=== PATIENT | female | born 1975 | race Two or more races ===

== ENCOUNTER 2024-08-19 16:22 | Emergency (ER) | payer OTHER ==
[~2024-08-19] VITALS: Ht 162.6 cm; Wt 68.0 kg
[2024-08-19] MEDS ORDERED: CARDIZEM30 MG PO (16:26)
[2024-08-19] MEDS ORDERED: ZESTRIL2.5 MG PO (16:26)
[2024-08-19] MEDS ORDERED: DEXAMETHASONE SODIUM PHOSPHATE 4 MG/ML VIAL IM STA (20:19)
[2024-08-19] MEDS ORDERED: GUAIFENESIN/DEXTROMETHORPHAN 10ML BLIST.PACK PO STA (20:20)
[2024-08-19 20:51] LABS: HEMATOCRIT 34.1 % (36.0-45.00); MEAN CELL VOLUME 80.3 fL (80.00-100.00); MEAN CORPUSCULAR HGB CONC 32.3 g/dl (32.0-36.0); PLATELET COUNT 310 K/uL (150-450); RED BLOOD COUNT 4.25 M/uL (4.00-6.00); RED CELL DISTRIBUTION WIDTH 17.1 % (11.5-14.5)
[2024-08-19 21:14] LABS: CALCIUM 9.4 mg/dL (8.5-10.1); CREATININE SERUM 0.73 mg/dL (0.55-1.02); GFR 84.05; POTASSIUM 4.17 mEq/L (3.5-5.1)
[2024-08-19] MEDS ORDERED: AMOX-CLAV 875-1 EACH PO (22:14)
[2024-08-19] MEDS ORDERED: DEXAMETHASONE4 MG PO (22:14)
[2024-08-19] MEDS ORDERED: MUCINEX DM ER1 EACH PO (22:14)
[2024-08-19] MEDS ORDERED: AYR SALINE50 ML NASAL (22:14)
== END 2024-08-19 23:39 | disposition home or self-care (01) ==
LOC: ER 16:24
PROVIDERS: General Practice
DX: J04.0 Acute laryngitis (principal); Z20.822 Contact with and (suspected) exposure to COVID-19; I10 Essential (primary) hypertension; Z88.8 Allergy status to other drugs, medicaments and biological substances

== ENCOUNTER 2025-05-18 12:14 | Emergency (ER) | payer OTHER ==
[~2025-05-18] VITALS: Ht 167.6 cm; Wt 73.5 kg
[~2025-05-18 12:14] MED LIST: AMOX-CLAV 875-1 EACH PO; AYR SALINE50 ML NASAL; CARDIZEM30 MG PO; DEXAMETHASONE4 MG PO; MUCINEX DM ER1 EACH PO; ZESTRIL2.5 MG PO
[2025-05-18] MEDS ORDERED: ZESTRIL2.5 MG (12:33)
[2025-05-18] MEDS ORDERED: METRONIDAZOLE500 MG (12:34)
[2025-05-18] MEDS ORDERED: CIPRO500 MG/5 M (12:34)
[2025-05-18 13:14] LABS: BASO % 0.5 % (0.1-1.2); EOS # 0.11 (0.04-0.54); EOS % 1.0 % (0.7-7.0); LYMPH # 1.16 (1.18-3.74); LYMPH % 10.2 % (19.3-53.1); MEAN PLATELET VOLUME 11.20 fl (9.4-12.4); MONO # 1.01 (0.24-0.82); MONO % 8.9 % (4.7-12.5); NEUT # 8.99 (1.56-6.13); NEUT % 79.1 % (34.0-71.1); RED CELL DISTRIBUTION WIDTH 18.6 % (11.6-14.4)
[2025-05-18 13:47] LABS: BUN CREA RATIO 7.0 (7.0-25.0); CREATININE SERUM 1.08 mg/dL (0.55-1.02); GFR 53.48; GLUCOSE FASTING 146.0 mg/dL (65-100); OSMOLALITY SERUM 279.0 MOSM/KG (275-295)
[2025-05-18 14:34] LABS: URINE BILIRRUBIN MODERATE (NEGATIVE); URINE BLOOD SMALL; URINE GLUCOSE NEGATIVE (NEGATIVE); URINE KETONE TRACE (NEGATIVE); URINE LEUKOCYTE NEGATIVE; URINE NITRATE POSITIVE; URINE PROTEIN 100 (NEGATIVE); URINE UROBILINOGEN 0.2 E.U./dl
[2025-05-18 14:38] LABS: URINE APPEARANCE CLOUDY; URINE COLOR YELLOW
[2025-05-18 14:39] LABS: URINE BACTERIA MODERATE; URINE MUCUS SCANT
[2025-05-18] MEDS ORDERED: PEPCID AC20 MG PO (17:34)
[2025-05-18] MEDS ORDERED: LEVSIN/SL0.125 MG SL (17:34)
[2025-05-18] MEDS ORDERED: METRONIDAZOLE500 MG PO (17:34)
[2025-05-18] MEDS ORDERED: CIPRO500 MG PO (17:34)
[2025-05-18] MEDS ORDERED: PROBIOTIC1 EAC2 PO (17:36)
== END 2025-05-18 19:27 | disposition home or self-care (01) ==
LOC: ER 12:14
PROVIDERS: Emergency Medicine
DX: R10.32 Left lower quadrant pain (principal); K57.32 Diverticulitis of large intestine without perforation or abscess without bleeding; D25.9 Leiomyoma of uterus, unspecified; I10 Essential (primary) hypertension; Z88.2 Allergy status to sulfonamides; Z88.8 Allergy status to other drugs, medicaments and biological substances

== ENCOUNTER 2025-07-15 15:36 | Emergency (ER) | payer OTHER ==
[~2025-07-15] VITALS: Ht 167.6 cm; Wt 79.8 kg
[~2025-07-15 15:36] MED LIST changes: +CIPRO500 MG PO; +CIPRO500 MG/5 M; +LEVSIN/SL0.125 MG SL; +METRONIDAZOLE500 MG; +METRONIDAZOLE500 MG PO; +PEPCID AC20 MG PO; +PROBIOTIC1 EAC2 PO; +ZESTRIL2.5 MG
[2025-07-15 16:30] VITALS: BP 120/79; O2SAT 99
[2025-07-15] MEDS ORDERED: DILTIAZEM HCL30 MG PO (16:32)
[2025-07-15 17:18] LABS: BASO % 1.3 % (0.1-1.2); EOS # 0.22 (0.04-0.54); EOS % 3.6 % (0.7-7.0); LYMPH # 1.69 (1.18-3.74); LYMPH % 27.9 % (19.3-53.1); MEAN PLATELET VOLUME 11.40 fl (9.4-12.4); MONO # 0.68 (0.24-0.82); MONO % 11.2 % (4.7-12.5); NEUT # 3.37 (1.56-6.13); NEUT % 55.8 % (34.0-71.1); RED CELL DISTRIBUTION WIDTH 17.8 % (11.6-14.4)
[2025-07-15 17:45] LABS: EOSINOPHIL MAN 3.0 %; LYMPHOCYTE MAN 27.0 %; MONOCYTE MAN 6.0 %; NEUTROPHILS MAN 63.0 %
[2025-07-15 17:49] LABS: ALT/SGPT 40.0 U/L (12-78); AST/SGOT 29.0 U/L (15-37); BILIRUBIN TOTAL 0.15 mg/dL (0.3-1.2); BUN CREA RATIO 15.0 (7.0-25.0); CREATININE SERUM 0.8 mg/dL (0.55-1.02); GFR 75.32; GLOBULINA 3.7 G/DL (2.4-3.5); GLUCOSE FASTING 109.0 mg/dL (65-100); OSMOLALITY SERUM 285.0 MOSM/KG (275-295)
== END 2025-07-15 19:23 | disposition home or self-care (01) ==
LOC: ER 15:36
PROVIDERS: General Practice
DX: I10 Essential (primary) hypertension (principal); R07.89 Other chest pain; Z88.8 Allergy status to other drugs, medicaments and biological substances

== ENCOUNTER → 2025-10-14 | Emergency (ER) | payer OTHER ==
[~2025-10-14] VITALS: Ht 170.2 cm; Wt 80.7 kg
[~2025-10-14] MED LIST changes: +ATORVASTATIN CA10 MG PO; +DILTIAZEM HCL30 MG PO; +HYOSCYAMINE SULFATE 0.125 MG TAB.SUBL ONE; +HYOSCYAMINE SULFATE 0.125 MG TAB.SUBL SL ONE; +KETOROLAC TROMETHAMINE 60 MG VIAL IM ONE; +NORFLEX100MG PO
== END | disposition home or self-care (01) ==
LOC: ER 20:01
DX: R10.11 Right upper quadrant pain (principal); Z88.8 Allergy status to other drugs, medicaments and biological substances; I49.8 Other specified cardiac arrhythmias